=== PATIENT | female | born 1960 | race Caucasian/White ===

== ENCOUNTER 2017-05-29 09:04 | Emergency (ER) | payer SELFPAY ==
[~2017-05-29] VITALS: Ht 160 cm; Wt 84.1 kg
[2017-05-29 09:06] VITALS: BP 130/88; PULSE 88; RESP 16; TEMP 98.5; O2SAT 98
--- NOTE | 2017-05-29 09:26 | PD ---
HPI Chief Complaint: Injury Time Seen by Provider: 09:16 Travel History International Travel<30 days: No Contact w/Intl Traveler<30days: No Traveled to known affect area: No History of Present Illness HPI This 56-year-old female is complaining of pain in her left shoulder. sHe says that Monday night she was cleaning carpets. When she woke up and the morning next day she was having pain in the left shoulder. Pain is aggravated by any movement. Believes she had bursitis in her other shoulder several years ago. He does not recall any direct trauma. His been no fever or chills. She has no history of arthritis. Pain is quite severe and is aggravated by any movement. PFSH Past Medical History Medical History: Denies Significant Hx Hx Anticoagulant Therapy: No Diabetes: No Diminished Hearing: No Tetanus Vaccination: Unknown Influenza Vaccination: No ?: Not Past Surgical History Surgical History: No Previous Surgery Social History Alcohol Use: Yes (OCC) Tobacco Use: Yes (/2 PPD) Substance Use: No Allergies-Medications (Allergen,Severity, Reaction): Coded Allergies: No Known Allergies (Unverified , 05/29/17) Reported Meds & Prescriptions Reported Meds & Active Scripts Active No Active Prescriptions or Reported Medications Review of Systems General / Constitutional: No: Fever, Chills Eyes: No: Blurred Vision HENT: No: Headaches Cardiovascular: No: Chest Pain or Discomfort, Palpitations Respiratory: No: Cough, Shortness of Breath Gastrointestinal: No: Vomiting, Diarrhea Genitourinary: No: Urgency, Frequency Musculoskeletal: Positive: Arthralgias, Pain, No: Edema Skin: No Rash, No Itching Neurologic: No: Dizziness Endocrine: No: Cold Intolerance Hematologic/Lymphatic: No: Easy Bruising Physical Exam Narrative GENERAL: Well-developed female SKIN: Focused skin assessment warm/dry. HEAD: Atraumatic. Normocephalic. EYES: Pupils equal and round. No scleral icterus. No injection or drainage. ENT: No nasal bleeding or discharge. Mucous membranes pink and moist. NECK: Trachea midline. No JVD. MUSCULOSKELETAL: No obvious deformities. No clubbing. No cyanosis. No edema. Left shoulder has some tenderness lateral to the humerus. There is no erythema or warmth. There is a lot of pain with any movement of the shoulder. She is unable to abduct the arm. Pulses in the left arm are normal as is sensation NEUROLOGICAL: Awake and alert. No obvious cranial nerve deficits. Motor grossly within normal limits. Normal speech. PSYCHIATRIC: Appropriate mood and affect; insight and judgment normal. Data Data Last Documented VS Vital Signs Date Time Temp Pulse Resp B/P Pulse Ox O2 Delivery O2 Flow Rate FiO2 05/29/17 09:06 98.5 88 16 130/88 98 Orders Shoulder, Complete (>2vws) (05/29/17 09:22) Ketorolac Inj (Toradol Inj) (05/29/17 09:30) Splint Or Brace Apply/Monitor (05/29/17 10:16) [facility] Medical Decision Making Medical Screen Exam Complete: Yes Emergency Medical Condition: Yes Medical Record Reviewed: Yes Differential Diagnosis Differential includes tendinitis left shoulder, bursitis left shoulder, Narrative Course X-ray shows the bones intact. Exam is most consistent with bursitis of shoulder Diagnosis Primary Impression: Bursitis of left shoulder Scripts Oxycodone-Acetaminophen (Percocet)7.5-325 mg Tab1 Tab PO Q4H PRN (PAIN) #20 TAB Ref 0 Prov:Flaco Kirkland MD 05/29/17 Ibuprofen 600 Mg [id number] Mg PO Q6H PRN (Pain/Inflammation) #40 TAB Ref 0 Prov:Flaco Kirkland MD 05/29/17 Disposition: 01 DISCHARGE HOME Condition: Stable Flaco Kirkland MD May 29, 2017 09:26
[2017-05-29] MEDS ORDERED: KETOROLAC TROMETHAMINE 60 MG/2 ML (IM) VIAL IM ONE (09:30)
--- NOTE | 2017-05-29 10:14 | RADRPT ---
EXAM DATE/TIME: 05/29/2017 09:39 [facility] COMPARISON: No previous studies available for comparison. INDICATIONS : Left shoulder pain after cleaning carpets. MEDICAL HISTORY : None. SURGICAL HISTORY : None. ENCOUNTER: Initial ACUITY: 3 days PAIN SCORE: 8/10 LOCATION: Left lateral Shoulder FINDINGS: Multiple view examination of the left shoulder demonstrates no evidence of fracture or dislocation. The glenohumeral and acromioclavicular joints are maintained. There is normal range of motion betwee n internal and external rotation. Bony mineralization is normal. CONCLUSION: Normal examination for a patient of this age. Daniel Kee MD on May 29, 2017 at 10:11 Board Certified Radiologist. This report was verified electronically.
[2017-05-29] MEDS ORDERED: IBUP-232 PO (10:18)
[2017-05-29] MEDS ORDERED: PERC7.5T13 PO (10:18)
== END 2017-05-29 10:45 | disposition home or self-care (01) ==
LOC: PHED 09:04
DX: M75.52 Bursitis of left shoulder (principal); F17.210 Nicotine dependence, cigarettes, uncomplicated
CPT/HCPCS: 73030; 96372; 99284; J1885

== ENCOUNTER 2017-08-21 03:14 | Emergency (ER) | payer SELFPAY ==
[~2017-08-21] VITALS: Ht 160 cm; Wt 83.1 kg
[~2017-08-21 03:14] MED LIST: IBUP-232 PO; PERC7.5T13 PO
[2017-08-21 03:20] VITALS: BP 158/106; PULSE 75; RESP 18; TEMP 98.3; O2SAT 99
[2017-08-21 03:32] VITALS: BP 158/106; PULSE 75; RESP 18; TEMP 98.3
[2017-08-21 03:37] VITALS: BP 163/97; PULSE 82; RESP 18; O2SAT 97
--- NOTE | 2017-08-21 03:52 | PD ---
HPI Chief Complaint: Musculoskeletal Complaint Time Seen by Provider: 03:39 Travel History International Travel<30 days: No Contact w/Intl Traveler<30days: No Traveled to known affect area: No History of Present Illness HPI The patient is a 57-year-old female that complains of neck pain for 2 days. The neck pain is mostly on the right lateral portion of her neck. It does not shoot down her arm and she denies any numbness or weakness in either arm. She states she thought she slept in the wrong position at night. She denies any trauma, fever, ear pain, jaw pain or dental pain. She states she does not want narcotics. PFSH Past Medical History Hx Anticoagulant Therapy: No Anxiety: Yes Diabetes: No Diminished Hearing: No Influenza Vaccination: No ?: Not Tubal Ligation: Yes Social History Alcohol Use: Yes (OCC) Tobacco Use: Yes (1/2 PPD) Substance Use: No Allergies-Medications (Allergen,Severity, Reaction): Coded Allergies: No Known Allergies (Unverified , 08/21/17) Reported Meds & Prescriptions Reported Meds & Active Scripts Active Review of Systems Except as stated in HPI: all other systems reviewed are Neg Physical Exam Narrative GENERAL: Well-nourished, well-developed patient in slight apparent distress with her neck pain. Her vital signs show blood pressure 158/106 but otherwise normal. SKIN: Focused skin assessment warm/dry. HEAD: Normocephalic. EYES: No scleral icterus. No injection or drainage. NECK: Supple, trachea midline. No JVD or lymphadenopathy. There is tenderness around the lateral processes of the lower portion the neck diffusely. Traction on the neck reduces her pain. CARDIOVASCULAR: Regular rate and rhythm without murmurs, gallops, or rubs. RESPIRATORY: Breath sounds equal bilaterally. No accessory muscle use. GASTROINTESTINAL: Abdomen soft, non-tender, nondistended. MUSCULOSKELETAL: No cyanosis, or edema. BACK: Nontender without obvious deformity. No CVA tenderness. Data Data Last Documented VS Vital Signs Date Time Temp Pulse Resp B/P (MAP) Pulse Ox O2 Delivery O2 Flow Rate FiO2 08/21/17 05:00 63 16 141/90 (107) 94 08/21/17 03:37 Room Air 08/21/17 03:32 98.3 Orders Orders Ketorolac Inj (Toradol Inj) (08/21/17 04:00) Ct Cerv Spine W/O Contrast (08/21/17 03:52) Splint Or Brace Apply/Monitor (08/21/17 04:54) MDM Medical Decision Making Medical Screen Exam Complete: Yes Emergency Medical Condition: Yes Medical Record Reviewed: Yes Interpretation(s) The CT scan of the cervical spine was normal. Differential Diagnosis Herniated nucleus pulposus, cervical radiculopathy, cervical subluxation, fracture cervical spine-unlikely, cervical strain Narrative Course The patient has a cervical muscle strain. She will be given ketorolac and Flexeril. She is to follow-up with a primary care physician. Diagnosis Primary Impression: Cervical muscle strain Additional Instructions: Both the muscle relaxant and the ketorolac are taken one tablet 3 times daily. Follow-up with a primary care physician. Med/Other Pt SpecificInfo: Prescription(s) given Scripts Cyclobenzaprine (Flexeril) 10 Mg Tab 10 MG PO TID for Muscle Spasm, #30 TAB 0 Refills Prov: Lucio Melgoza MD 08/21/17 Ketorolac (Ketorolac) 10 Mg Tab 10 MG PO TID, #44 TAB 0 Refills Prov: Lucio Melgoza MD 08/21/17 Disposition: 01 DISCHARGE HOME Condition: Stable Lucio Melgoza MD Aug 21, 2017 03:52
[2017-08-21] MEDS ORDERED: KETOROLAC TROMETHAMINE 60 MG/2 ML (IM) VIAL IM ONE (04:00)
[2017-08-21 05:00] VITALS: BP 141/90; PULSE 63; RESP 16; O2SAT 94
--- NOTE | 2017-08-21 05:23 | RADRPT ---
EXAM DATE/TIME: 08/21/2017 04:39 [facility] COMPARISON: No previous studies available for comparison. INDICATIONS : Right neck pain. RADIATION DOSE: 26.56 CTDIvol (mGy) MEDICAL HISTORY : None SURGICAL HISTORY : None. ENCOUNTER: Initial ACUITY: 2 days PAIN SCALE: 8/10 LOCATION: Right neck TECHNIQUE: Volumetric scanning of the cervical spine was performed. Multiplanar reconstructions in the sagittal, coronal and oblique axial planes were performed. Using automated exposure control and adjustment o f the mA and/or kV according to patient size, radiation dose was kept as low as reasonably achievable to obtain optimal diagnostic quality images. DICOM format image data is available electronically f or review and comparison. FINDINGS: VERTEBRAE: Normal vertebral body height. ALIGNMENT: No evidence of subluxation. C2-C3: The bony spinal canal is normal in size. No evidence of disc bulge or herniation. The neural forami na are bilaterally patent. C3-C4: The bony spinal canal is normal in size. No evidence of disc bulge or herniation. The neural forami na are bilaterally patent. C4-C5: The bony spinal canal is normal in size. No evidence of disc bulge or herniation. The neural forami na are bilaterally patent. C5-C6: The bony spinal canal is normal in size. No evidence of disc bulge or herniation. The neural forami na are bilaterally patent. C6-C7: The bony spinal canal is normal in size. No evidence of disc bulge or herniation. The neural forami na are bilaterally patent. C7-T1: The bony spinal canal is normal in size. No evidence of disc bulge or herniation. The neural forami na are bilaterally patent. CONCLUSION: Normal examination for a patient of this age. Ney Peterson MD on August 21, 2017 at 5:19 Board Certified Radiologist. This report was verified electronically.
[2017-08-21] MEDS ORDERED: KETO10 PO (05:44)
[2017-08-21] MEDS ORDERED: CYCL1TAB29 PO (05:44)
[2017-08-21 05:51] VITALS: BP 138/88
[2017-08-21] MEDS ORDERED: ORPHENADRINE INJ 60 MG/2 ML AMP IM ONE (06:00)
== END 2017-08-21 06:00 | disposition home or self-care (01) ==
LOC: PHED 03:14
DX: S16.1XXA Strain of muscle, fascia and tendon at neck level, initial encounter (principal); X58.XXXA Exposure to other specified factors, initial encounter
CPT/HCPCS: 72125; 96372; 99284; J1885; L0120